=== PATIENT | male | born 1955 | race Caucasian/White ===

== ENCOUNTER 2024-02-26 09:39 | Observation (INO) ==
[2024-02-26] MEDS ORDERED: Thiamine 100 MG/ML 2 ml VIAL (200 mg) ONE (14:52)
[2024-02-26] MEDS: Thiamine 100 MG/ML 2 ml VIAL 100 MG in NS 0.9% 50 ML 50 ML IV SCH (15:53)
[2024-02-26] MEDS: Enoxaparin 40 MG/0.4 ML SYR SUBCUT SCH (15:54)
[2024-02-26] MEDS: Cyanocobalamin INJ 1,000 MCG/ML VIAL 1 ML VIAL IM ONE (15:56)
[2024-02-26 20:06] LABS: TSH Ultra Thyroid Stim Horm 1.51 mcIU/mL (0.34-5.60)
[2024-02-26 20:12] LABS: Ferritin 186.8 ng/mL (24-336)
[2024-02-26 20:17] LABS: Folate 9.74 ng/mL (5.90-24.80)
[2024-02-27 06:28] LABS: ABS Basophils 0.1 10^3/uL (0.0-0.1); ABS Eosinophils 0.1 10^3/uL (0.0-0.5); ABS Lymphocytes 1.7 10^3/uL (1.0-4.8); ABS Monocytes 0.6 10^3/uL (0.0-1.1); ABS Neutrophils 3.3 10^3/uL (1.5-7.6); ABS Nucleated RBC 0.01 10^3/ul; Eosinophil % 1.8 %; Hematocrit 40.3 % (38-53); Hemoglobin 13.5 g/dL (13.2-16.3); Mean Corpuscular Hemoglobin 27.9 pg (27-33); Mean Corpuscular Hgb Conc 33.3 g/dL (31-36); Mean Corpuscular Volume 83.6 fL (80-97); Mean Platelet Volume 7.3 fL (7.5-11.2); Nucleated Red Blood Cells % 0.1 %/100WBC (0.0-0.8); Platelet Count 248 10^3/uL (150-450); Red Blood Count 4.83 10^6/uL (4.06-5.63); Red Cell Distribution Width 13.9 % (12-17); White Blood Count 5.7 10^3/uL (3.6-10.2)
[2024-02-27 07:28] LABS: Calcium 8.8 mg/dL (8.6-10.3); Creatinine, Serum 0.83 mg/dL (0.67-1.17); Magnesium 1.9 mg/dL (1.9-2.7); Potassium 3.4 mmol/L (3.5-5.0); eGFR CKD-EPI 95.9 (>60)
[2024-02-27] MEDS: Cyanocobalamin INJ 1,000 MCG/ML VIAL 1 ML VIAL IM SCH (09:03)
[2024-02-27] MEDS: Potassium Chlor 10 meq TAB PO ONE (09:49)
[2024-02-27] MEDS: Irbesartan 150 mg TAB (NF) PO SCH (18:03)
[2024-02-27] MEDS ORDERED: Dextrose 50% Syringe 50 ml 25 GM/50 ML SYRINGE IV PUSH PRN (19:45)
[2024-02-28] MEDS: Haloperidol 5 mg/ml SDV IV/IM 5 MG/ML AMP IV SLOW PU ONE (01:32)
[2024-02-28 06:52] LABS: ABS Basophils 0.1 10^3/uL (0.0-0.1); ABS Eosinophils 0.1 10^3/uL (0.0-0.5); ABS Lymphocytes 1.5 10^3/uL (1.0-4.8); ABS Monocytes 0.6 10^3/uL (0.0-1.1); ABS Neutrophils 3.1 10^3/uL (1.5-7.6); Eosinophil % 1.9 %; Hematocrit 40.6 % (38-53); Lymphocyte % 28.1 %; Mean Corpuscular Hemoglobin 28.9 pg (27-33); Mean Corpuscular Hgb Conc 34.5 g/dL (31-36); Mean Corpuscular Volume 83.8 fL (80-97); Nucleated Red Blood Cells % 0.1 %/100WBC (0.0-0.8); Platelet Count 260 10^3/uL (150-450); Red Blood Count 4.85 10^6/uL (4.06-5.63); Red Cell Distribution Width 14.3 % (12-17); White Blood Count 5.3 10^3/uL (3.6-10.2)
[2024-02-28 07:25] LABS: Calcium 9.2 mg/dL (8.6-10.3); Creatinine, Serum 0.9 mg/dL (0.67-1.17); Phosphorus 4.1 mg/dL (2.5-5.0); Potassium 3.7 mmol/L (3.5-5.0); eGFR CKD-EPI 93.6 (>60)
[2024-02-29 06:52] LABS: ABS Basophils 0.1 10^3/uL (0.0-0.1); ABS Eosinophils 0.1 10^3/uL (0.0-0.5); ABS Lymphocytes 1.5 10^3/uL (1.0-4.8); ABS Monocytes 0.6 10^3/uL (0.0-1.1); ABS Neutrophils 3.4 10^3/uL (1.5-7.6); ABS Nucleated RBC 0.01 10^3/ul; Eosinophil % 1.5 %; Hematocrit 41.8 % (38-53); Hemoglobin 14.5 g/dL (13.2-16.3); Lymphocyte % 26.8 %; Mean Corpuscular Hgb Conc 34.6 g/dL (31-36); Mean Corpuscular Volume 83.6 fL (80-97); Mean Platelet Volume 7.1 fL (7.5-11.2); Nucleated Red Blood Cells % 0.1 %/100WBC (0.0-0.8); Platelet Count 269 10^3/uL (150-450); Red Cell Distribution Width 14.2 % (12-17); White Blood Count 5.6 10^3/uL (3.6-10.2)
[2024-02-29 08:03] LABS: Calcium 9.2 mg/dL (8.6-10.3); Creatinine, Serum 0.88 mg/dL (0.67-1.17); Potassium 3.6 mmol/L (3.5-5.0); eGFR CKD-EPI 94.2 (>60)
[2024-03-01 02:17] VITALS: BP 141/80
[2024-03-03 12:04] LABS: Anaplasma phagocytophilum Negative (Negative); B. miyamotoi PCR, B Negative (Negative); Babesia divergens/MO-1 Negative (Negative); Babesia ducani Negative (Negative); Ehrlichia chaffeensis Negative (Negative); Ehrlichia ewingii/canis Negative (Negative); Ehrlichia muris eauclairensis Negative (Negative)
== END 2024-02-29 20:30 | disposition short-term general hospital (02) ==
LOC: ED 09:39 → EDHOLD 09:39 → SUATTDRO 14:13 → MED 17:12
PROVIDERS: ADMIT Hospitalist; ATTEND Hospitalist

== ENCOUNTER 2024-02-29 20:31 | Inpatient (IN) ==
[2024-02-29] MEDS ORDERED: Dextrose 50% Syringe 50 ml 25 GM/50 ML SYRINGE IV PUSH PRN (23:47)
[2024-03-01] MEDS: Cyanocobalamin INJ 1,000 MCG/ML VIAL 1 ML VIAL IM SCH (10:09)
[2024-03-01] MEDS: CMCS: Irbesartan 150 mg TAB (NF) PO SCH (10:09)
[2024-03-01] MEDS: Enoxaparin 40 MG/0.4 ML SYR SUBCUT SCH (20:32)
[2024-03-17 11:38] LABS: TB1 Ag minus Nil Result 0.01 IU/mL; TB2 Ag minus Nil Result 0.03 IU/mL
[2024-03-17 11:40] LABS: QuantiferonTb Gold Plus Result Negative (Negative)
[2024-03-19 05:40] VITALS: BP 133/80
== END 2024-03-19 09:15 | DRG 57 ==
LOC: MED 20:31 → SUATTDRO 20:31 → MED 03-04 16:32
PROVIDERS: ADMIT Student in an Organized Health Care Education/Training Program; ATTEND Internal Medicine